=== PATIENT | male | born 1950 | race African-American/Black ===

== ENCOUNTER 2018-09-12 19:26 | Emergency (ER) | payer SELFPAY | END 2018-09-12 20:19 | disposition left against medical advice (07) | LOC: ER 19:26 | DX: Z53.21 Procedure and treatment not carried out due to patient leaving prior to being seen by health care provider (principal) ==

== ENCOUNTER 2018-12-11 10:50 | Emergency (ER) | payer MEDICARE, MEDICAID ==
[~2018-12-11] VITALS: Ht 188 cm; Wt 97.0 kg
[2018-12-11 10:56] VITALS: BP 129/83
[2018-12-11 14:32] LABS: CLARITY URINE CLEAR (CLEAR); COLOR URINE YELLOW (YELLOW); KETONES URINE NEGATIVE (NEGATIVE); LEUKOCYTE ESTERASE URINE NEGATIVE (NEGATIVE); NITRITE URINE NEGATIVE (NEGATIVE); OCCULT BLOOD URINE TRACE (NEGATIVE); PH URINE 6.5 (4.5-8.0); PROTEIN URINE NEGATIVE (NEGATIVE); SPECIFIC GRAVITY URINE 1.018 (1.005-1.030)
== END 2018-12-11 14:15 | disposition left against medical advice (07) ==
LOC: ER 11:37
DX: R06.02 Shortness of breath (principal); Z53.21 Procedure and treatment not carried out due to patient leaving prior to being seen by health care provider